=== PATIENT | female | born 1965 | race Caucasian/White ===

== ENCOUNTER 2018-09-08 02:29 | Inpatient (IN) | payer MEDICAID ==
[~2018-09-08] VITALS: Ht 152.4 cm; Wt 52.2 kg
[2018-09-08] VITALS (10 sets, daily range): BP systolic 113–202; BP diastolic 58–88
[2018-09-08] MEDS ORDERED: ONDANSETRON 4 MG/2 ML VIAL IVP ONE (02:40)
[2018-09-08] MEDS ORDERED: NACL 0.9% 2,000 ML IV ONE (02:40)
[2018-09-08] MEDS ORDERED: INSULIN REGULAR, HUMAN 100 UNIT/ML VIAL SUBQ ONE ×2 (02:40→04:00)
--- NOTE | 2018-09-08 02:48 | NUR ---
PT WHEELED INTO BED 11 FROM [facility].
--- NOTE | 2018-09-08 02:49 | NUR ---
PATIENT BIB FAMILY WITH C/O SYNCOPE AND N/V PRIOR TO ER. PT FAMILY STATED THAT PT WOKE UP AND WENT TO THE BATHROOM AND PASSED OUT. PAIN OF 7/10 AT THIS TIME;PT HAS HX OF HTN AND DM. PT BS WAS OVER 600 IN TRIAGE. VSS; PATIENT POSITIONED FOR COMFORT; HOB ELEVATED; BEDRAILS UP X2; BED DOWN. ER MD MADE AWARE OF PT STATUS.
[2018-09-08 02:50] LABS: BASOPHILS # (AUTO) 0.1 K/uL (0.00-0.22); BASOPHILS % (AUTO) 1.2 % (0.0-2.0); EOSINOPHILS # (AUTO) 0.5 K/uL (0-0.4); HEMATOCRIT 50.3 % (36-48); HEMOGLOBIN 16.8 g/dL (12.0-16.0); LYMPHOCYTES # (AUTO) 2.5 K/uL (2.5-16.5); LYMPHOCYTES % (AUTO) 35.4 % (20.5-51.1); MEAN CORPUSCULAR HEMOGLOBIN 29 pg (27-31); MEAN CORPUSCULAR HGB CONC 34 g/dL (33-37); MEAN CORPUSCULAR VOLUME 86.6 fL (80-94); MONOCYTES # (AUTO) 0.4 K/uL (0.8-1.0); MONOCYTES % (AUTO) 5.4 % (1.7-9.3); NEUTROPHILS # (AUTO) 3.6 K/uL (1.8-7.7); PLATELET COUNT (AUTO) 295 K/uL (140-450); RED CELL DISTRIBUTION WIDTH 12.9 % (11.6-13.7)
[2018-09-08] MEDS ORDERED: LABETALOL 100 MG/20 ML VIAL IVP ONE (02:55)
--- NOTE | 2018-09-08 03:00 | NUR ---
FLU SWAB DONE,SENT TO LAB
--- NOTE | 2018-09-08 03:00 | NUR ---
PT LYING IN BED, COMFORT MEASURES OFFERED PT TOLERATED WELL.
[2018-09-08 03:01] LABS: ACETONE, SERUM NEGATIVE (NEGATIVE)
[2018-09-08 03:09] LABS: ALBUMIN 3.9 g/dL (3.4-5.0); ASPARTATE AMINOTRANSFERASE 14 U/L (15-37); CARBON DIOXIDE 27.6 mmol/L (21-32); CHLORIDE 95 mmol/L (98-107); GFR ARICAN-AMERICAN 74 mL/min (>90); POTASSIUM 3.6 mmol/L (3.5-5.1); SODIUM SERUM 133 mmol/L (136-145); TOTAL BILIRUBIN 0.3 mg/dL (0.0-1.0); UREA NITROGEN, BLOOD 15 mg/dL (7-18)
[2018-09-08 03:13] LABS: GLUCOSE 622 mg/dL (74-106)
[2018-09-08] MEDS ORDERED: POTASSIUM CHLORIDE 10 MEQ TABER PO ONE (03:25)
[2018-09-08] MEDS ORDERED: PROCHLORPERAZINE 10 MG/2 ML VIAL IVP ONE (03:55)
[2018-09-08 03:59] LABS: APPEARANCE,URINE HAZY (CLEAR); BILIRUBIN,URINE NEGATIVE (NEGATIVE); BLOOD, URINE TRACE-L (NEGATIVE); COLOR,URINE YELLOW (YELLOW); LEUKOCYTE ESTERASE ,URINE NEGATIVE (NEGATIVE); NITRITE, URINE NEGATIVE (NEGATIVE); UGLUCOSE 3+ (NEGATIVE)
[2018-09-08] MEDS ORDERED: cloNIDine 0.1 MG TAB PO ONE (04:00)
--- NOTE | 2018-09-08 04:00 | NUR ---
PER ER MD TO HOLD OFF ON CLONIDINE PO PILLS. MEDICATION WAS DICONTINUED. ER MD MADE AWARE.
[2018-09-08 04:05] LABS: BARBITURATE, URINE NEG. ng/ml (NEG <=200); BENZODIAZEPINE, URINE NEG. ng/mL (NEG <=200); CANNABINOID, URINE NEG. ng/mL (NEG <=50); COCAINE, URINE NEG. ng/mL (NEG <=300); OPIATE, URINE NEG. ng/mL (NEG <=2000); PHENCYCLIDINE SCREEN,URINE NEG. ng/mL (NEG <=25)
[2018-09-08] MEDS ORDERED: hydrALAZINE 20 MG/ML VIAL IVP ONE (04:05)
[2018-09-08 04:18] LABS: RBC,URINE 0-5 (RARE) /HPF (0-5); WBC,URINE 0-5 (RARE) /HPF (0-5)
--- NOTE | 2018-09-08 04:55 | NUR ---
PT HAD A BM, DIARRHEA. ER MADE AWARE
[2018-09-08] MEDS ORDERED: NACL 0.9% 1,000 ML IV ONE (05:00)
--- NOTE | 2018-09-08 05:05 | NUR ---
ACCU CHECK WAS TAKEN PT TOLERATED WELL. FAMILY AT BEDSIDE. BS WAS 526. ER MD MADE AWARE.
[2018-09-08] MEDS ORDERED: NACL 0.9% 1,000 ML IV SCH (05:12)
[2018-09-08] MEDS ORDERED: MORPHINE SULFATE 2 MG/ML SYR IVP PRN (05:15)
[2018-09-08] MEDS ORDERED: HYDROcodone/APAP 5/325 MG 1 TAB TAB PO PRN (05:15)
[2018-09-08] MEDS ORDERED: DOCUSATE SODIUM 100 MG GELCAP PO PRN (05:15)
[2018-09-08] MEDS ORDERED: INSULIN REGULAR, HUMAN 100 UNIT in NACL 0.9% 100 ML IV SCH ×6 (05:20→06:25)
--- NOTE | 2018-09-08 05:30 | NUR ---
Patient will be admitted to care of DR. MONAHAN. Admited to ICU. Will go to [facility] ICU #5. Belongings list completed. Report to ELIN MERA.
--- NOTE | 2018-09-08 05:30 | NUR ---
Pt report given to ELIN MERA. Transfer of care at this time. PT VSS
[2018-09-08 05:31] LABS: PROTHROMBIN TIME 8.7 secs (10.8-13.4)
--- NOTE | 2018-09-08 05:35 | NUR ---
RECEIVED BEDSIDE REPORT FROM CHLORINE CELL TENDER, ISIAH. PT IS LETHARGIC, GENERALIZED WEAKNESS ABLE TO STAND AT BEDSIDE INTO BED. LUNG SOUNDS CLEAR-DIMINISHED ON BILATERAL UPPER/LOWER LOBES. ON JENNIFER AIR. BOWEL SOUND ACTIVE, ABDOMEN SOFT/ROUND. PT HAD DIARRHEA AND VOMMITTING WHILE IN ED, STATED NO APPETITE FROM FAMILY AT BEDSIDE. NO NICOLE IN PLACE, CONTINENT. LEFT AC 18 GAUGE PIV WITH NS INFUSING AT 125ML/HR. SKIN INTACT. BP= 133/73, RR= 17, SATING 98%, AND HR 79-80. AFEBRILE, TEMP 97.7 SR ON ASSEMBLY LINE SUPERVISOR. STANDARD PRECAUTIONS MAINTAINED, HOB ELEVATED, FALL PRECAUTIONS MAINTAINED.
[2018-09-08 05:43] LABS: CHOL/HDL RATIO 8.7 (1-4.5); MAGNESIUM 1.8 mg/dL (1.8-2.4); PHOSPHORUS 3.9 mg/dL (2.5-4.9); THYROID STIMULATING HORMONE 0.83 uIU/mL (0.34-3.74)
--- NOTE | 2018-09-08 05:50 | NUR ---
RT SALGADO AT BEDSIDE TO COLLECT BLOOD SAMPLE/ABG.
[2018-09-08] MEDS: BLOOD GLUCOSE MONITORING 1 DEV DEV FS SCH ×9 (05:56→20:11)
--- NOTE | 2018-09-08 06:01 | NUR ---
RT LOPEZ AT BEDSIDE TO DRAW ABG.
--- NOTE | 2018-09-08 06:28 | NUR ---
DR. STEPHENS AT BEDSIDE TO SEE PATIENT.
[2018-09-08] MEDS ORDERED: MIC5 PO (06:33)
[2018-09-08] MEDS ORDERED: CAPT25TA10 PO (06:33)
[2018-09-08] MEDS ORDERED: METF850T PO (06:33)
--- NOTE | 2018-09-08 06:55 | NUR ---
PT HAD 1 EPISODE, VOMITTING, AND VOIDING.
[2018-09-08 07:00] LABS: CHOL/HDL RATIO 8.8 (1-4.5)
--- NOTE | 2018-09-08 07:28 | NUR ---
GAVE BEDSIDE REPORT TO MORNING SHIFT RNLORENA, CONTINUITY OF CARE.
--- NOTE | 2018-09-08 07:43 | NUR ---
CALLED DR. ECHOLS ON SHEAR TENDER RESIDENT PHONE, INFORMED OF NO PATIENT CODE STATUS WILL REPORT TO KAT AND UPDATE.
--- NOTE | 2018-09-08 07:52 | NUR ---
PATIENT HAS BEEN SCREENED AND CATEGORIZED MODERATE NUTRITION RISK. PATIENT WILL BE SEEN WITHIN 3-5 DAYS OF ADMISSION. 09/10/18[address]OUB[address]
--- NOTE | 2018-09-08 08:00 | NUR ---
PATIENT SLEEPY, OPENS EYES TO VOICE, OBEYS COMMANDS, ORIENTED, ON ROOM AIR, NO SIGNS OF RESPIRATORY DISTRESS, SINUS RHYTHM ON MONITOR, SOFT ABDOMEN, ON INSULIN DRIP 6 UNITS/HR., VOIDING FREELY, WITH PERIPHERAL LINES GAUGE 29 AT RIGHT HAND-INSULIN DRIP INFUSING, GAUGE 20 AT LEFT ANTECUBITAL WITH NORMAL SALINE 200 CC/HR. BOTH SITES ASYMPTOMATIC, SKIN INTACT, BOTH LEGS WITH SCDs
[2018-09-08] MEDS ORDERED: CAPTOPRIL 25 MG TAB PO SCH (09:00)
--- NOTE | 2018-09-08 09:00 | NUR ---
PHYSICAL THERAPIST AT BEDSIDE.
[2018-09-08] MEDS: ONDANSETRON 4 MG/2 ML VIAL IM/IVP PRN (09:19)
--- NOTE | 2018-09-08 09:19 | NUR ---
PATIENT VOMITED APPROXIMATELY 50 CC GREENISH OUTPUT. PRN ZOFRAN GIVEN. HEAD OF BED UP 45 DEGREES AT THIS TIME. WILL CONTINUE TO MONITOR
--- NOTE | 2018-09-08 09:23 | NUR ---
PATIENT VERY WEAK UNABLE TO SIT STEADY AT THE EDGE OF THE BED. PT AND RN HELPED PATIENT BACK TO BED. DR. STEPHENS MADE AWARE
--- NOTE | 2018-09-08 09:31 | NUR ---
DR. ORONA AT BEDSIDE
[2018-09-08] MEDS ORDERED: MAG SULF 2000 MG/WATER PREMIX 50 ML IV SCH (10:00)
--- NOTE | 2018-09-08 10:09 | NUR ---
DR. STEPHENS MADE AWARE OF PATIENT'S 10 AM BLOOD SUGAR WHICH IS 152. PHYSICIAN TO PUT IN ORDERS
--- NOTE | 2018-09-08 10:40 | NUR ---
ULTRASOUND OF THE ABDOMEN AT BEDSIDE
[2018-09-08] MEDS ORDERED: DEXT 5% /NACL 0.9% 1,000 ML IV SCH (11:05)
[2018-09-08] MEDS ORDERED: DEXTROSE 50% 50 ML SYR IVP PRN (11:05)
[2018-09-08 11:10] LABS: ANION GAP 10.2 (8-16); CARBON DIOXIDE 28.3 mmol/L (21-32); CREATININE 0.8 mg/dL (0.6-1.3); POTASSIUM 3.5 mmol/L (3.5-5.1)
[2018-09-08 11:15] LABS: MAGNESIUM 1.8 mg/dL (1.8-2.4); PHOSPHORUS 2.2 mg/dL (2.5-4.9)
--- NOTE | 2018-09-08 11:30 | NUR ---
PATIENT OFF INSULIN DRIP AT THIS TIME. PER DR. STEPHENS WILL START [facility] BLOOD SUGAR CHECK AND SLIDING SCALE. CURRENT BLOOD SUGAR 126
[2018-09-08] MEDS: METOCLOPRAMIDE 10 MG/2 ML INJ VIAL IVP PRN ×2 (12:01→18:13)
[2018-09-08] MEDS ORDERED: MECLIZINE 25 MG TAB PO PRN (13:30)
--- NOTE | 2018-09-08 16:24 | NUR ---
INFORMED DR. ECHOLS (WHO IS COVERING FOR DR. STEPHENS) THAT PATIENT IS NO LONGER VOMITING AND SHE IS NOW EATING AND MAY SWITCH IV FLUID TO NORMAL SALINE INSTEAD OF D5NS, INFORMED DR. ECHOLS TO CANCEL PREVIOUS ORDER FOR NPO, INFORMED PATIENT HAS IMPLANTED METAL DENTURE AND MRI BRAIN WAS ORDERED FOR THIS PATIENT
[2018-09-08 16:28] LABS: ANION GAP 13.6 (8-16); CARBON DIOXIDE 24.7 mmol/L (21-32); CREATININE 0.7 mg/dL (0.6-1.3); MAGNESIUM 1.9 mg/dL (1.8-2.4); PHOSPHORUS 3.2 mg/dL (2.5-4.9); POTASSIUM 3.3 mmol/L (3.5-5.1)
[2018-09-08] MEDS: INSULIN LISPRO SLIDING SCALE 100 UNITS/ML VIAL SUBQ PRN ×2 (16:32→20:15)
[2018-09-08] MEDS: NACL 0.9% 1,000 ML IV SCH (16:33)
[2018-09-08] MEDS: SODIUM PHOS / POTASSIUM PHOS 1 PKT PDR PO SCH (16:33)
--- NOTE | 2018-09-08 17:30 | NUR ---
PM CARE RENDERED. DINNER TRAY SERVED THEREAFTER. HEAD OF BED KEPT UP
[2018-09-08] MEDS: hydrALAZINE 20 MG/ML VIAL IVP PRN (18:13)
--- NOTE | 2018-09-08 18:30 | NUR ---
MEDICATED PATIENT PRN METOCLOPRAMIDE AFTER SHE VOMITED AGAIN ABOUT 50 ML GREENISH OUTPUT AFTER DINNER. HEAD OF BED KEPT UP. PATIENT ORIENTEDX4 NOT IN ANY DISTRESS
--- NOTE | 2018-09-08 19:30 | NUR ---
RECEIVED REPORT FROM MORNING RN FOR CONTINUITY OF CARE. VS STABLE AT THIS TIME. PT DOES NOT APPEAR TO BE EXPERIENCING ANY DISCOMFORT. PT OPENS EYES TO NAME. DENIES PAIN AT THIS TIME. PT ABLE TO MAKE NEEDS KNOWN AND TO FOLLOW COMMANDS. LUNG SOUNDS CLEAR. PT IN ROOM AIR. NO SOB NOTED. DENIES ANY DIFFICULTY BREATHING. S1+S2 HEARD. PULSES ARE PALPABLE IN ALL EXTREMITIES. SR ON MONITOR. ABDOMEN ROUND, SOFT AND NONDISTENDED. DENIES ANY NAUSEA AT THIS TIME. BS ACTIVE IN ALL QUADRANTS. PT DENIES THE NEED TO USE THE BEDPAN RIGHT NOW. RECEIVED PT WITH PERIPHERAL IV ACCESS ON LEFT HAND 20G AND LEFT AC 18G. LINES ARE PATENT, INTACT, AND ASYMPTOMATIC. PT HAS NS AT 100ML/HR RUNNING. SCD IN PLACE. HOB AT 30 DEGREES. ALL SAFETY PRECAUTIONS ARE IN PLACE. WILL CONTINUE TO MONITOR PT.
[2018-09-08 20:08] LABS: CARBON DIOXIDE 26.5 mmol/L (21-32); CREATININE 0.9 mg/dL (0.6-1.3); POTASSIUM 3.5 mmol/L (3.5-5.1)
[2018-09-08] MEDS: SIMVASTATIN 40 MG TAB PO SCH (20:11)
[2018-09-08 20:12] LABS: MAGNESIUM 1.8 mg/dL (1.8-2.4)
[2018-09-08] MEDS ORDERED: ATORVASTATIN 20 MG TAB PO SCH (21:00)
--- NOTE | 2018-09-08 21:40 | NUR ---
PT'S FAMILY AT BEDSIDE AT THIS TIME. PT INTERACTING WITH FAMILY.
--- NOTE | 2018-09-08 23:44 | NUR ---
NO CHANGE IN PT'S CONDITION AT THIS TIME. EYES ARE CLOSED. RESPIRATIONS EVEN AND UNLABORED. SR ON MONITOR WITH HR BETWEEN 70S TO 80S. PT REMAINS IN ROOM AIR. NO S/S OF HYPO OR HYPERGLYCEMIA OBSERVED.
[2018-09-09] VITALS (9 sets, daily range): BP systolic 108–152; BP diastolic 50–82
--- NOTE | 2018-09-09 00:15 | NUR ---
PT EYES ARE CLOSED. CHANGED THE LEADS ON HER CHEST. NOTED WITH SOME BLOOD ON THE SHEETS. IV ON LEFT AC WAS PULLED OUT. CATHETER INTACT. BLEEDING FROM IV SITE STOPPED. PT'S GOWN AND LINENS WERE CHANGED.
[2018-09-09 00:23] LABS: CARBON DIOXIDE 26.9 mmol/L (21-32); CREATININE 0.7 mg/dL (0.6-1.3)
[2018-09-09 00:26] LABS: MAGNESIUM 1.8 mg/dL (1.8-2.4); PHOSPHORUS 3.2 mg/dL (2.5-4.9)
[2018-09-09 00:51] LABS: POTASSIUM 2.9 mmol/L (3.5-5.1)
--- NOTE | 2018-09-09 00:51 | NUR ---
REPORTED CRITICAL LAB VALUE TO DR. BOONE; RECEIVED NEW ORDERS. CLARIFIED THE BMP WELL. NO MORE BMP UNTIL THE MORNING LABS. CALLED LAB AND NOTIFIED PRACHI.
[2018-09-09] MEDS: hydrALAZINE 20 MG/ML VIAL IVP PRN ×2 (00:59→13:49)
[2018-09-09] MEDS ORDERED: POTASSIUM CHLORIDE 10 MEQ TABER PO SCH (01:00)
--- NOTE | 2018-09-09 01:05 | NUR ---
PT WAS ABLE TO SWALLOW MEDICATIONS WITH NO DIFFICULTY. RESPIRATIONS ARE EVEN AND UNLABORED. PT STATES THAT SHE DOES NOT NEED ANYTHING AT THIS TIME. PT REMAINS IN ROOM AIR.
[2018-09-09] MEDS: NACL 0.9% 1,000 ML IV SCH ×3 (02:20→21:09)
--- NOTE | 2018-09-09 04:18 | NUR ---
VS STABLE. NO CHANGE IN CONDITION. PT ABLE TO REPOSITION SELF. LINENS AND GOWN REMAINS CLEAN FROM BEING CHANGED EARLIER IN THE SHIFT. NO BM AT THIS TIME. IV LINE STILL PATENT, INTACT, AND ASYMPTOMATIC. ALL SAFETY PRECAUTIONS ARE IN PLACE. WILL CONTINUE TO MONITOR PT.
[2018-09-09 06:12] LABS: ANION GAP 12.9 (8-16); CARBON DIOXIDE 24.2 mmol/L (21-32); CREATININE 0.7 mg/dL (0.6-1.3); POTASSIUM 4.1 mmol/L (3.5-5.1)
--- NOTE | 2018-09-09 06:15 | NUR ---
VS REMAINS STABLE. EYES ARE CLOSED. PT DENIES ANY PAIN AT THIS TIME. RESPIRATIONS ARE EVEN AND UNLABORED. STILL IN ROOM AIR WITH OXYGEN SATURATION AT 98%. ALL SAFETY PRECAUTIONS REMAINS IN PLACE. WILL CONDITION TO MONITOR PT.
[2018-09-09 06:16] LABS: MAGNESIUM 1.6 mg/dL (1.8-2.4); PHOSPHORUS 3.1 mg/dL (2.5-4.9)
[2018-09-09 06:20] LABS: BASOPHILS % (AUTO) 0.2 % (0.0-2.0); EOSINOPHILS % (AUTO) 0.2 % (0.0-4.0); HEMATOCRIT 41.2 % (36-48); HEMOGLOBIN 13.8 g/dL (12.0-16.0); LYMPHOCYTES % (AUTO) 19.3 % (20.5-51.1); MEAN CORPUSCULAR HEMOGLOBIN 29 pg (27-31); MEAN CORPUSCULAR HGB CONC 34 g/dL (33-37); MEAN CORPUSCULAR VOLUME 87.1 fL (80-94); MONOCYTES # (AUTO) 0.4 K/uL (0.8-1.0); MONOCYTES % (AUTO) 3.7 % (1.7-9.3); NEUTROPHILS % (AUTO) 76.6 % (42.2-75.2); PLATELET COUNT (AUTO) 264 K/uL (140-450); RED BLOOD CELL COUNT(AUTO) 4.73 MIL/uL (4.20-5.40); RED CELL DISTRIBUTION WIDTH 13.3 % (11.6-13.7); WHITE BLOOD COUNT (AUTO) 10.4 K/uL (4.8-10.8)
[2018-09-09] MEDS: BLOOD GLUCOSE MONITORING 1 DEV DEV FS SCH ×4 (06:25→21:05)
[2018-09-09] MEDS: SODIUM PHOS / POTASSIUM PHOS 1 PKT PDR PO SCH ×3 (06:25→17:28)
[2018-09-09] MEDS ORDERED: PROMETHAZINE 25 MG/ML VIAL IVP PRN (06:45)
--- NOTE | 2018-09-09 07:11 | NUR ---
REPORT GIVEN TO MORNING RNMADIE, FOR CONTINUITY OF CARE. VS STABLE AT THIS TIME. ENDORSED THE INSULIN COVERAGE NEEDED D/T PT'S TRAY NOT AT BEDSIDE YET.
--- NOTE | 2018-09-09 07:15 | NUR ---
RECEIVED REPORT FROM SCREEN PRINTER HELPER RN AT BEDSIDE, PT AAOX4, TAJIK SPEAKING, ABLE TO FOLLOW COMMANDS AND MAKE NEEDS KNOWN, VSS, DENIES PAIN, NO S/S OF DISTRESS, CLEAR LUNG SOUND PHYLICIA. ON RA, O2 SAT 97%, DENIES CHEST PAIN, ST ON SUBASSEMBLY ASSEMBLER, +2 PULSE PRESENT, SOFT ABDOMEN WITH ACTIVE BOWEL SOUNDS, CONTINENT WITH B&B'S, ABLE TO MOVE ALL EXTREMITIES, SLIGHT WEAKNESS NOTED, SKIN IS INTACT, WARM AND DRY TO TOUCH, IV SITE TO LEFT HAND, 20GA, RUNNING NS AT 100ML/HR, HOB ELEVATED 30 DEGREES, SAFETY MEASURES IN PLACE, CALL LIGHT WITHIN REACH, WILL CONTINUE TO MONITOR.
[2018-09-09] MEDS: INSULIN LISPRO SLIDING SCALE 100 UNITS/ML VIAL SUBQ PRN ×4 (07:50→21:05)
[2018-09-09] MEDS: ONDANSETRON 4 MG/2 ML VIAL IM/IVP PRN ×2 (08:00→21:00)
[2018-09-09] MEDS: LISINOPRIL 10 MG TAB PO SCH (08:06)
[2018-09-09] MEDS: METOCLOPRAMIDE 10 MG TAB PO SCH ×3 (08:06→17:28)
[2018-09-09 08:19] LABS: T4 (THYROXINE) 9.1 ug/dL (4.5-12.0)
--- NOTE | 2018-09-09 08:21 | NUR ---
DR ZAVALA INFORMED OF PATIENT'S MAG LEVEL 1.6. WILL FOLLOW UP WITH ORDERS.
--- NOTE | 2018-09-09 08:30 | NUR ---
PT ATE 50%OF BREAKFAST, SCHEDULED MEDICATION GIVEN, PT C/O NAUSEA, ZOFRAN GIVEN.
[2018-09-09] MEDS ORDERED: MAGNESIUM OXIDE 400 MG TAB PO SCH (09:00)
[2018-09-09] MEDS ORDERED: CAPTOPRIL 25 MG TAB PO SCH (09:00)
--- NOTE | 2018-09-09 09:14 | NUR ---
CM NOTE RECEIVED ORDER FOR MRI OF THE BRAIN W/O CONTRAST R/O CVA. PER COCO OF [facility] MRI FRONT OFFICE PH# [phone], SHE WILL HAVE TO CHECK WITH HER DIRECTOR OF ENTERTAINMENT FIRST IF THE MRI IS APPROVED BY CADASTRAL SURVEYOR AND SHE WILL CHECK IF THEY HAVE AN GROOVER AND TURNER AVAILABLE TODAY. I FAXED FACESHEET, ORDER FOR MRI, H&P, MRI QUESTIONNAIRE ANSWERED AND SIGNED BY THE PATIENT,CT OF THE HEAD REPORT, LAB RESULT TO [facility] MRI DEPT ATTN: COCO. I INFORMED COCO THAT PER FREELANCE PATTERNMAKER CHONG, FREELANCE PATTERNMAKER LORENA'S NOTE AND PER MRI QUESTIONNAIRE ANSWERED AND SIGNED BY PATIENT, THE PATIENT HAS IMPLANTED METAL DENTURE. I REQUESTED COCO TO CHECK WITH THEIR GROOVER AND TURNER IF MRI OF THE BRAIN CAN BE DONE TO THIS PATIENT. PER COCO SHE WILL CALL BACK IF MRI OF THE BRAIN CAN BE DONE AND IF THEY WOULD HAVE AN GROOVER AND TURNER AVAILABLE TODAY.
[2018-09-09] MEDS ORDERED: glyBURIDE 5 MG TAB PO SCH (11:15)
[2018-09-09] MEDS ORDERED: ASPIRIN 81 MG TAB.CHEW PO SCH (11:30)
--- NOTE | 2018-09-09 11:31 | NUR ---
CM NOTE PER [facility] PRODUCTION ASSOCIATE SUZY MARTINEZ PH# [phone], MRI OF THE BRAIN CAN BE DONE IN THIS PATIENT WITH METAL DENTAL IMPLANT BUT THAT THEY DO NOT HAVE AN AVAILABLE PRODUCTION ASSOCIATE TO DO IT TODAY AND HE HAS OTHER SCHEDULED APPOINTMENTS FOR TODAY. PER [facility] PRODUCTION ASSOCIATE SUZY MARTINEZ, THE EARLIEST AVAILABLE SCHEDULE TO DO THE MRI WOULD BE ON SEPTEMBER 12, 2018 AND THE PATIENT HAS TO BE AT [facility] BY 8:00 AM. 1000 PER [facility] PRODUCTION ASSOCIATE MELODY KNIGHT PH# [phone], MRI OF THE BRAIN CAN BE DONE IN THIS PATIENT WITH METAL DENTAL IMPLANT. SHE SAID THAT SHE CAN DO THE MRI IF THE PATIENT WILL BE AT [facility] BY 12 NOON TODAY. FAXED FACESHEET, ORDER FOR MRI, H&P, MRI QUESTIONNAIRE ANSWERED AND SIGNED BY THE PATIENT, CT OF HEAD REPORT, LAB RESULT TO [facility], ATTN: MELODY. 1020 RECEIVED A CALL FROM [facility] PRODUCTION ASSOCIATE MELODY KNIGHT STATING THAT SHE WOULD BE UNABLE TO DO THE MRI TODAY BECAUSE SHE HAS CHECKED HER SCHEDULE AND SHE IS DOING A TRIPLE STUDY ON ANOTHER PATIENT TODAY WHICH WILL TAKE TIME TO DO. CM DIRECTOR JONES YUEN.
--- NOTE | 2018-09-09 12:00 | NUR ---
PT IS RESTING IN BED, NO S/S OF DISTRESS, DENIES PAIN, VSS, ABLE TO EAT 50% LUNCH AND ONLY CAN TOLERATED SOFT FOOD AT THIS TIME, MD AWARE.
--- NOTE | 2018-09-09 12:33 | NUR ---
[address] FROM [facility]. HE STATED THAT THEY THOUGHT THEY HAD A PATIENT NO SHOW SO WERE TRYING TO ACCOMMODATE PT FOR MRI BUT THEIR PATIENT DID SHOW AND THEY NOW ALSO HAVE MRI'S SCHEDULED FOR THEIR INHOUSE PATIENTS SO WILL NOT BE ABLE TO ACCOMMODATE THE PATIENT TODAY.
--- NOTE | 2018-09-09 12:39 | NUR ---
CM NOTE DR. ZAVALA AWARE THAT THE MRI CANNOT BE DONE TODAY AT [facility] OR [facility]. I ASKED DR. ZAVALA IF SHE STILL WANTS THE MRI TO BE SCHEDULED FOR WEDNESDAY AT [facility]. PER DR. ZAVALA, SHE WILL ASK DR. MONAHAN AND WILL INFORM US OF ANY FURTHER INSTRUCTION.
--- NOTE | 2018-09-09 14:10 | NUR ---
TRANSFERRED PT TO TELEMETRY ROOM 111A, ALL BELONGINGS GOES WITH PT, REPORT GIVE TO EDE WHATLEY, NO INCIDENT AT THIS TIME.
--- NOTE | 2018-09-09 14:29 | NUR ---
CM NOTE ORDER FOR MRI OF THE BRAIN TO R/O CVA ON SEPTEMBER 12, 2018. PER DOUG OF [facility] PH# [phone], THEY ARE ABLE TO DO THE MRI ON SEPTEMBER 12, 2018 AND THE PATIENT HAS TO BE THERE BY 8:00 AM AND HAS TO PASS BY THEIR OUTPATIENT DEPT FIRST. SPOKE WITH KATY OF [facility] PH# [phone] TO SET UP PATIENT TRANSPORT. PER KATY, THE PATIENT WILL BE PICKED UP AT 0715 TIME ON SEPTEMBER 12, 2018 BY [facility] TO GO TO [facility] FOR MRI, WAIT IN RETURN. I FAXED THE [facility] TRANSPORTATION VOUCHER TO [facility]. I WAS INFORMED BY ICU NURSE MADIE THAT THE THEY ARE TRANSFERRING THE PATIENT TO TELEMETRY RM 111 A TODAY. I SPOKE WITH KATY OF [facility] TO GIVE HER AN UPDATE ABOUT THE ROOM CHANGE FOR SALES UTILITY REPRESENTATIVE. DR. ZAVALA AND MADIE RN AWARE.
--- NOTE | 2018-09-09 14:30 | NUR ---
RECEIVED REPORT FROM ICU NURSE MADIE. PATIENT AAOX4. PATIENT ON ROOM AIR, NO DISTRESS NOTED. ABLE TO TRANSFER TO BED W 1 PERSON ASSIST D/T GEN WEAKNESS. PATIENT ON TELE MONITOR AND STANDARD PRECAUTIONS IN PLACE. SKIN INTACT. IV ON L HAND 20 G INFUSING NS AT 100. IV ASYMPTOMATIC, INTACT AND PATENT. SCDS IN PLACE. BED IN LOW POSITION CALL LIGHT WITHIN REACH. WILL CONTINUE TO MONITOR.
--- NOTE | 2018-09-09 16:00 | NUR ---
FAMILY AT BEDSIDE. ON ROOM AIR, NO DISTRESS NOTED. SLEEPING, WILL CONTINUE TO MONITOR.
[2018-09-09] MEDS: glyBURIDE 5 MG TAB PO SCH (17:27)
--- NOTE | 2018-09-09 18:12 | NUR ---
BLOOD SUGAR 294. PATIENT SHOWING NO S/SX OF HYPERGLYCEMIA. ADMINISTERED 6 UNITS HUMALOG. WILL CONTINUE TO MONITOR PATIENT.
--- NOTE | 2018-09-09 19:10 | NUR ---
GAVE REPORT TO EDE CLAY. PATIENT ENDORSED IN STABLE CONDITION, SLEEPING, ON ROOM AIR, NO DISTRESS NOTED.
--- NOTE | 2018-09-09 19:30 | NUR ---
RECEIVED BEDSIDE REPORT FROM EDE JOLLY, PATIENT IN BED, EASILY AWAKEN, ON RA, NO SIGNS OF DISTRESS, AAOX4, IV IN LEFT HAND 20 G INFUSING NS AT 100 ML/HR, DRESSING INTACT. NOTED RIGHT SIDED WEAKNESS, BED IN LOWEST POSITION, BED ALARM ON. DAY SHIFT NURSE STATED LEFT EYE DRIFTS, NO OBVIOUS DRIFT SEEN AT THIS TIME. V/S TAKEN ALL WITHIN BASELINE, BG 278 WILL GIVE INSULIN. PATIENT C/O FEELING NAUSEOUS WILL GIVE ZOFRAN.
[2018-09-09] MEDS: SIMVASTATIN 40 MG TAB PO SCH (21:00)
--- NOTE | 2018-09-09 21:06 | NUR ---
DUE MEDICATIONS GIVEN BLOOD GLUCOSE 278 GAVE 6 UNITS, PATIENT C/O FEELING NAUSEOUS GAVE ZOFRAN IVP.
--- NOTE | 2018-09-09 22:45 | NUR ---
PATIENT AMBULATED TO RESTROOM, UNSTEADY GAIT, NEEDS ONE PERSON ASSIST.
[2018-09-10] VITALS: BP 140/77
--- NOTE | 2018-09-10 00:10 | NUR ---
V/S TAKEN, PATIENT SLEEPING, NO SIGNS OF DISTRESS.
--- NOTE | 2018-09-10 01:40 | NUR ---
PATIENT SLEEPING IN BED NO SIGNS OF DISTRESS.
--- NOTE | 2018-09-10 03:58 | NUR ---
V/S TAKEN NOTED BP 133/90 HR 90. DENIES PAIN. IV INFUSING NS AT 100 ML/HR. BED ALARM ON, CALL LIGHT WITHIN REACH.
[2018-09-10 04:00] VITALS: BP 133/90
--- NOTE | 2018-09-10 05:42 | NUR ---
BLOOD GLUCOSE 146 NO COVERAGE NEEDED
[2018-09-10] MEDS ORDERED: PNEUMOCOCCAL VACCINE 23 MCG/0.5 ML VIAL IMVAC SCH (06:10)
[2018-09-10] MEDS ORDERED: INFLUENZA VIRUS VACCINE QUAD 0.5 ML SYR IMVAC PRN (06:10)
[2018-09-10] MEDS: BLOOD GLUCOSE MONITORING 1 DEV DEV FS SCH ×4 (06:27→20:39)
[2018-09-10] MEDS: METOCLOPRAMIDE 10 MG TAB PO SCH ×3 (06:29→17:06)
[2018-09-10] MEDS: SODIUM PHOS / POTASSIUM PHOS 1 PKT PDR PO SCH (06:29)
--- NOTE | 2018-09-10 06:31 | NUR ---
DUE MEDICATIONS GIVEN
--- NOTE | 2018-09-10 07:11 | NUR ---
ENDORSED PATIENT TO DAY SHIFT NURSE RUKHSANA, PATIENT SLEEPING IN BED STABLE.
--- NOTE | 2018-09-10 07:15 | NUR ---
RECEIVED BEDSIDE REPORT FROM BLISTER PACKAGING MACHINE OPERATOR RN FOR CONTINUITY OF CARE. PT IN STABLE CONDITION. AOX4. STATES THAT SHE IS NAUSEOUS, WILL CHECK EMAR AND ADMIN ANTIEMETIC ORDERED. RESPIRATIONS EVEN AND UNLABORED. HEART RHYTHM REGULAR. ACTIVE BS IN ALL QUADRANTS. ABDOMEN SOFT AND NON-DISTENDED. RT SIDED WEAKNESS NOTED. SKIN INTACT. IV SITE PATENT AND ASYMPTOMATIC, INFUSING IVF PER MD ORDERS. ALL SAFETY PRECAUTIONS IN PLACE, WILL CONTINUE TO MONITOR. Addendum: 09/10/18 at 1843 by Cindi Carrera Meng, RN FACIAL FEATURES SYMMETRICAL, NO DROOP. NO SLURRED SPEECH.
[2018-09-10 07:44] LABS: BASOPHILS % (AUTO) 0.5 % (0.0-2.0); EOSINOPHILS # (AUTO) 0.1 K/uL (0-0.4); EOSINOPHILS % (AUTO) 1.6 % (0.0-4.0); HEMOGLOBIN 13.7 g/dL (12.0-16.0); LYMPHOCYTES # (AUTO) 3.2 K/uL (2.5-16.5); LYMPHOCYTES % (AUTO) 37.5 % (20.5-51.1); MEAN CORPUSCULAR HEMOGLOBIN 29 pg (27-31); MEAN CORPUSCULAR HGB CONC 33 g/dL (33-37); MEAN CORPUSCULAR VOLUME 86.9 fL (80-94); MONOCYTES # (AUTO) 0.5 K/uL (0.8-1.0); MONOCYTES % (AUTO) 5.7 % (1.7-9.3); NEUTROPHILS # (AUTO) 4.7 K/uL (1.8-7.7); NEUTROPHILS % (AUTO) 54.7 % (42.2-75.2); PLATELET COUNT (AUTO) 247 K/uL (140-450); RED BLOOD CELL COUNT(AUTO) 4.72 MIL/uL (4.20-5.40); RED CELL DISTRIBUTION WIDTH 12.7 % (11.6-13.7); WHITE BLOOD COUNT (AUTO) 8.5 K/uL (4.8-10.8)
[2018-09-10 08:00] VITALS: BP 154/68
[2018-09-10] MEDS: ASPIRIN 81 MG TAB.CHEW PO SCH (08:04)
[2018-09-10] MEDS: LISINOPRIL 10 MG TAB PO SCH (08:04)
[2018-09-10] MEDS: glyBURIDE 5 MG TAB PO SCH ×2 (08:04→17:06)
[2018-09-10] MEDS: ONDANSETRON 4 MG/2 ML VIAL IM/IVP PRN ×2 (08:04→20:29)
--- NOTE | 2018-09-10 08:04 | NUR ---
ZOFRAN IVP ADMINISTERED FOR PT C/O NAUSEA. NO VOMITING NOTED.
[2018-09-10 08:08] LABS: ANION GAP 13.5 (8-16); CREATININE 0.7 mg/dL (0.6-1.3); POTASSIUM 3.5 mmol/L (3.5-5.1)
--- NOTE | 2018-09-10 09:00 | NUR ---
PT SLEEPING IN BED, AFTER ZOFRAN ADMINISTRATION. NO S/S N/V.
[2018-09-10] MEDS: NACL 0.9% 1,000 ML IV SCH ×2 (09:19→09:27)
[2018-09-10] MEDS: metFORMIN 850 MG TAB PO SCH ×2 (11:16→17:06)
[2018-09-10] MEDS: INSULIN LISPRO SLIDING SCALE 100 UNITS/ML VIAL SUBQ PRN ×3 (11:27→20:34)
--- NOTE | 2018-09-10 11:38 | NUR ---
ADMINISTERED 8 U HUMALOG FOR POC BLOOD GLUC OF 344
[2018-09-10 12:00] VITALS: BP 143/70
[2018-09-10] MEDS ORDERED: MAG SULF 2000 MG/WATER PREMIX 50 ML IV SCH (14:30)
--- NOTE | 2018-09-10 14:36 | NUR ---
* ST NOTE * Pt seen at bedside. Pt alert, cooperative and engaged throughout session, reporting no c/o pain at this time. Bedside dysphagia and oral mechanism exams completed. See evaluation report for further details. Pt tolerating 8/8 alternating PO trials of regular solid saltine crackers as well as 7/7 alternating PO trials of thin liquid apple juice via a straw, all w/o s/s of aspiration or choking. Pt reporting difficulty swallowing meats 2/2 to meat seeming dry. Pt and caregiver/nsg Cindi education completed re: aspiration precautions and safe swallow compensatory strategies pt and caregivers/family/nsg could utilize to aid pt w/swallow function, w/pt and caregiver/nsg Cindi verbalizing understanding and agreement w/clinician's recommendations. Pt also informed clinician will request FNS/Dietary services to add extra sauce/gravy to meats to aid pt w/swallowing as well, w/pt agreeable. It is thus recommended pt's PO diet consistency be modified to Mechanical soft-CHOPPED textures w/extra sauce/gravy on meats w/thin liquids for all meals, w/strict aspiration precautions in place during pt's PO intake. No further ST follow up recommended at this time. Pt and caregiver/Nsg Cindi education completed re: results of evaluation; benefits of abiding by aspiration precautions and recommended PO diet consistency; and prognosis for improvement; with pt and caregiver/Nsg Cindi verbalizing understanding and agreement w/clinician's recommendations. Recommend: - PO DIET CONSISTENCY OF MECHANICAL SOFT-CHOPPED TEXTURES, W/EXTRA SAUCE/GRAVY ON MEATS, W/THIN LIQUIDS For all meals - DIETARY/FNS: PLEASE ADD EXTRA SAUCE/GRAVY ON MEATS 2/2 to pt reporting c/o difficulty swallowing dry meat - WHOLE PILL PO MEDICATION ADMINISTRATION OR CRUSHED IN CHOPPED TEXTURES - MAINTAIN STRICT ASPIRATION PRECAUTIONS DURING PO INTAKE 2/2 TO RIGHT SIDED WEAKNESS - Pt requires assistance/cueing/reminders prior to setup of tray and during feeding - CAREGIVERS/NSG/FAMILY TO REMIND & CUE PT PRIOR AND DURING TO PO INTAKE TO SIT UP AT 80-90 DEGREE ANGLE DURING PO INTAKE; EAT SLOWLY; ALTERNATE BTWN SOLIDS & LIQUIDS; AND USE SMALL BITES/SIPS No further ST follow up recommended at this time. NOMS Level 3 Time In/Out 13:00 - 13:45
[2018-09-10 16:00] VITALS: BP 168/86
--- NOTE | 2018-09-10 16:26 | NUR ---
NOTIFIED DR. STEPHENS THAT BP WAS 175/88 AND RETAKEN WITH 168/[address] STEPHENS, SHE WILL PLACE ORDERS FOR LISINOPRIL BID - PULL OUT LISINOPRIL ORDER EARLY(WHENEVER AVAILABLE) AND ADMINISTER TO PT.
--- NOTE | 2018-09-10 16:57 | NUR ---
ASKED PHARMACY TO VERIFY LISINOPRIL. PHARMACIST WILL VERIFY THE ORDER.
[2018-09-10] MEDS ORDERED: LISINOPRIL 10 MG TAB PO SCH (17:00)
--- NOTE | 2018-09-10 19:28 | NUR ---
ENDORSED POC TO MOLDING ROOM SUPERVISOR RN. PT IN STABLE CONDITION.
--- NOTE | 2018-09-10 19:30 | NUR ---
RECEIVED BEDSIDE REPORT FORM EDE MILIAN, PATIENT IN BED, IV IN LEFT AC 22 G INFUSING NS AT 40 ML/HR. PATIENT C/O HEADACHE 09/18, ASKED FOR TYLENOL. FAMILY AT BEDSIDE QUESTIONS ANSWERED. BED IN LOWEST POSITION, CALL LIGHT WITHIN REACH, WILL CONTINUE TO MONITOR.
[2018-09-10 20:00] VITALS: BP 161/78
[2018-09-10] MEDS: SIMVASTATIN 40 MG TAB PO SCH (20:28)
[2018-09-10] MEDS: ACETAMINOPHEN 325 MG TAB PO PRN (20:28)
[2018-09-10] MEDS: hydrALAZINE 20 MG/ML VIAL IVP PRN (20:30)
--- NOTE | 2018-09-10 20:40 | NUR ---
BP 161/78 HR 90 GAVE HYDRALAZINE IVP, WILL REASSESS. BG 301 GAVE 8 UNITS HUMALOG. PATIENT C/O HEADACHE 3/10 GAVE TYLENOL, TOLERATED WELL. PATIENT C/O FEELING NAUSEOUS AT TIMES BUT NOT VOMITING GAVE ZOFRAN.
--- NOTE | 2018-09-10 21:30 | NUR ---
BP 130/70 HR 90 AFTER HYDRALAZINE WILL CONTINUE TO MONITOR.
[2018-09-11] VITALS: BP 111/60
--- NOTE | 2018-09-11 | NUR ---
B/P 111/60 HR 91 WILL CONTINUE TO MONITOR.
--- NOTE | 2018-09-11 02:00 | NUR ---
PATIENT SLEEPING IN BED NO SIGNS OF DISTRESS, WILL CONTINUE TO MONITOR.
[2018-09-11 04:00] VITALS: BP 144/67
[2018-09-11] MEDS: INSULIN LISPRO SLIDING SCALE 100 UNITS/ML VIAL SUBQ PRN ×4 (06:29→21:06)
[2018-09-11] MEDS: BLOOD GLUCOSE MONITORING 1 DEV DEV FS SCH ×4 (06:30→21:08)
[2018-09-11] MEDS: METOCLOPRAMIDE 10 MG TAB PO SCH ×3 (06:38→16:55)
--- NOTE | 2018-09-11 06:41 | NUR ---
BLOOD GLUCOSE 197 GAVE 2 U INSULIN.
[2018-09-11 06:48] LABS: BASOPHILS # (AUTO) 0.1 K/uL (0.00-0.22); BASOPHILS % (AUTO) 0.6 % (0.0-2.0); EOSINOPHILS # (AUTO) 0.2 K/uL (0-0.4); HEMOGLOBIN 12.7 g/dL (12.0-16.0); LYMPHOCYTES # (AUTO) 2.6 K/uL (2.5-16.5); LYMPHOCYTES % (AUTO) 32.9 % (20.5-51.1); MEAN CORPUSCULAR HEMOGLOBIN 29 pg (27-31); MEAN CORPUSCULAR HGB CONC 33 g/dL (33-37); MEAN CORPUSCULAR VOLUME 86.9 fL (80-94); MONOCYTES # (AUTO) 0.7 K/uL (0.8-1.0); MONOCYTES % (AUTO) 8.3 % (1.7-9.3); NEUTROPHILS # (AUTO) 4.5 K/uL (1.8-7.7); NEUTROPHILS % (AUTO) 56.2 % (42.2-75.2); PLATELET COUNT (AUTO) 240 K/uL (140-450); RED BLOOD CELL COUNT(AUTO) 4.37 MIL/uL (4.20-5.40); RED CELL DISTRIBUTION WIDTH 12.9 % (11.6-13.7)
[2018-09-11 07:05] LABS: ANION GAP 10.8 (8-16); CARBON DIOXIDE 27.6 mmol/L (21-32); CREATININE 0.8 mg/dL (0.6-1.3); POTASSIUM 3.4 mmol/L (3.5-5.1)
--- NOTE | 2018-09-11 07:19 | NUR ---
ENDORSED PATIENT TO DAY SHIFT NURSE PATIENT STABLE.
--- NOTE | 2018-09-11 07:20 | NUR ---
RECEIVED BEDSIDE REPORT FROM VALLEZ FILTER OPERATOR RN FOR CONTINUITY OF CARE. PT IN STABLE CONDITION, RESTING COMFORTABLY IN BED WITH FAMILY MEMBER AT BEDSIDE. AOX4. NO C/O PAIN OR DISCOMFORT. RESPIRATIONS EVEN AND UNLABORED. HEART RHYTHM REGULAR. ACTIVE BS IN ALL QUADRANTS. ABDOMEN SOFT AND NON-DISTENDED. RT SIDED WEAKNESS NOTED. SKIN INTACT. IV SITE PATENT AND ASYMPTOMATIC, INFUSING IVF PER MD ORDERS. ALL SAFETY PRECAUTIONS IN PLACE, WILL CONTINUE TO MONITOR.
[2018-09-11 07:22] LABS: MAGNESIUM 1.9 mg/dL (1.8-2.4); PHOSPHORUS 4.3 mg/dL (2.5-4.9)
[2018-09-11 08:00] VITALS: BP 158/74
[2018-09-11] MEDS ORDERED: POTASSIUM CHLORIDE 10 MEQ TABER PO ONE (08:00)
[2018-09-11] MEDS: glyBURIDE 5 MG TAB PO SCH ×2 (08:02→16:55)
[2018-09-11] MEDS: ASPIRIN 81 MG TAB.CHEW PO SCH (08:03)
[2018-09-11] MEDS: LISINOPRIL 10 MG TAB PO SCH ×2 (08:03→20:59)
[2018-09-11] MEDS: metFORMIN 850 MG TAB PO SCH ×3 (08:04→16:55)
--- NOTE | 2018-09-11 10:24 | NUR ---
PT LEFT UNIT FOR CT HEAD.
[2018-09-11] MEDS ORDERED: POTASSIUM CHLORIDE 10 MEQ TABER PO SCH (10:30)
[2018-09-11] MEDS: NACL 0.9% 1,000 ML IV SCH (11:12)
--- NOTE | 2018-09-11 11:24 | NUR ---
ADMINISTERED 4 UNITS HUMALOG FOR POC BLOOD GLUC OF 240 MG/DL.
[2018-09-11 16:00] VITALS: BP 151/75
--- NOTE | 2018-09-11 19:21 | NUR ---
ENDORSED POC TO SUPPORT TEAM ASSOC RN. PT IN STABLE CONDITION.
--- NOTE | 2018-09-11 19:35 | NUR ---
ENDORSED POC TO REGULATOR TESTER RN. PT IN STABLE CONDITION.
--- NOTE | 2018-09-11 19:36 | NUR ---
RECEIVED BEDSIDE REPORT AM SHIFT. MS PT. AOX4. SUPINE IN BED WITH FAMILY MEMBER AT BEDSIDE. NO C/O PAIN OR DISCOMFORT.NO S/S'S OF RESPIRATORY DISTRESS. RT SIDED WEAKNESS NOTED. SKIN INTACT. WITH ONGOING IVF ON LEFT AC PATENT AND ASYMPTOMATIC. ALL SAFETY PRECAUTIONS IN PLACE, CALL LIGHT WITHIN REACH.WILL CONTINUE TO MONITOR.
[2018-09-11] MEDS: SIMVASTATIN 40 MG TAB PO SCH (20:59)
--- NOTE | 2018-09-11 22:35 | NUR ---
PT VOIDED 1X YELLOW URINE, 300 CC.
--- NOTE | 2018-09-12 | NUR ---
SLEEPING COMFORTABLY. NO COMPLAINTS OF PAIN AT THIS TIME, RESPIRATIONS EVEN AND UNLABORED. WILL CONTINUE TO MONITOR.
[2018-09-12 04:00] VITALS: BP 160/80
[2018-09-12] MEDS: hydrALAZINE 20 MG/ML VIAL IVP PRN (05:14)
--- NOTE | 2018-09-12 06:01 | NUR ---
CONFIRMED W/[facility] FOR TIME OF AIRCRAFT SHIPPING CHECKER PT FOR 0715 AT 0550.
[2018-09-12] MEDS: METOCLOPRAMIDE 10 MG TAB PO SCH ×3 (06:26→16:30)
[2018-09-12] MEDS: BLOOD GLUCOSE MONITORING 1 DEV DEV FS SCH ×4 (06:35→21:08)
--- NOTE | 2018-09-12 06:41 | NUR ---
WILL ENDORSE TO NEXT SHIFT FOR CONTINUITY OF CARE. PT IN STABLE CONDITION
[2018-09-12 07:07] LABS: BASOPHILS % (AUTO) 0.4 % (0.0-2.0); EOSINOPHILS # (AUTO) 0.5 K/uL (0-0.4); EOSINOPHILS % (AUTO) 4.3 % (0.0-4.0); HEMATOCRIT 37.7 % (36-48); HEMOGLOBIN 12.7 g/dL (12.0-16.0); LYMPHOCYTES # (AUTO) 2.1 K/uL (2.5-16.5); LYMPHOCYTES % (AUTO) 19.4 % (20.5-51.1); MEAN CORPUSCULAR HEMOGLOBIN 29 pg (27-31); MEAN CORPUSCULAR HGB CONC 34 g/dL (33-37); MONOCYTES # (AUTO) 0.8 K/uL (0.8-1.0); MONOCYTES % (AUTO) 7.1 % (1.7-9.3); NEUTROPHILS # (AUTO) 7.6 K/uL (1.8-7.7); NEUTROPHILS % (AUTO) 68.8 % (42.2-75.2); PLATELET COUNT (AUTO) 230 K/uL (140-450); RED BLOOD CELL COUNT(AUTO) 4.39 MIL/uL (4.20-5.40); RED CELL DISTRIBUTION WIDTH 12.9 % (11.6-13.7); WHITE BLOOD COUNT (AUTO) 11.1 K/uL (4.8-10.8)
[2018-09-12 07:16] LABS: ANION GAP 11.2 (8-16); CARBON DIOXIDE 27.6 mmol/L (21-32); CREATININE 0.7 mg/dL (0.6-1.3); POTASSIUM 3.8 mmol/L (3.5-5.1)
[2018-09-12 07:22] LABS: MAGNESIUM 1.5 mg/dL (1.8-2.4); PHOSPHORUS 3.8 mg/dL (2.5-4.9)
--- NOTE | 2018-09-12 07:30 | NUR ---
RECEIVED REPORT FROM GINA MERA. PATIENT AAOX4. PATIENT ON ROOM AIR, NO DISTRESS NOTED. SKIN INTACT. IV ON L AC 22 G INFUSING NS AT 40. IV ASYMPTOMATIC, INTACT, AND PATENT. PATIENT UNABLE TO AMBULATE. ON MED SURGE AND STANDARD PRECAUTIONS IN PLACE. BED IN LOW POSITION, CALL LIGHT WITHIN REACH. WILL CONTINUE TO MONITOR. [facility] HERE READY FOR PICKUP TO GO TO [facility].
--- NOTE | 2018-09-12 07:40 | NUR ---
PATIENT PICKED UP VIA GURNEY BY [facility] TO GO TO [facility] FOR MRI. PATIENT IN STABLE CONDITION.
--- NOTE | 2018-09-12 09:45 | NUR ---
PATIENT BACK FROM [facility]. PATIENT IN STABLE CONDITION. WILL CONTINUE TO MONITOR.
[2018-09-12] MEDS: LISINOPRIL 10 MG TAB PO SCH ×2 (10:34→21:04)
[2018-09-12] MEDS: ASPIRIN 81 MG TAB.CHEW PO SCH (10:35)
[2018-09-12] MEDS: metFORMIN 850 MG TAB PO SCH ×3 (10:35→17:00)
[2018-09-12] MEDS: glyBURIDE 5 MG TAB PO SCH ×2 (10:35→17:00)
--- NOTE | 2018-09-12 10:43 | NUR ---
ADMINISTERED SCHEDULED MEDS. PATIENT TOLERATED WELL. WILL CONTINUE TO MONITOR.
[2018-09-12] MEDS ORDERED: MAGNESIUM OXIDE 400 MG TAB PO SCH (11:30)
--- NOTE | 2018-09-12 12:21 | NUR ---
ADMINISTERED SCHEDULED MEDS. PATIENT TOLERATED WELL. BLOOD SUGAR 104, NO COVERAGE NEEDED. PATIENT NOW EATING LUNCH. WILL CONTINUE TO MONITOR.
--- NOTE | 2018-09-12 14:26 | NUR ---
PATIENT SLEEPING. ON ROOM AIR, NO DISTRESS NOTED. WILL CONTINUE TO MONITOR.
--- NOTE | 2018-09-12 16:09 | NUR ---
09/12/18 RD INITIAL ASSESSMENT COMPLETED PLEASE REFER TO NUTRITION ASSESSMENT UNDER CARE ACTIVITY FOR ESTIMATED NUTRITIONAL NEEDS. 1. RECOMMEND CARDIAC AND CCHO 45 GM DIET WITH MODIFIED FOOD TEXTURE AND LIQUID CONSISTENCY RECOMMEND BY SPEECH THERAPIST 2. RD PROVIDED NUTRITION EDUCATION ON DIABETES AND GENERAL HEALTHY EATING. 3. RD TO FOLLOW-UP 3-5 DAYS, MODERATE RISK BOUBACAR SUE RD
--- NOTE | 2018-09-12 18:10 | NUR ---
FAMILY AT BEDSIDE. PATIENT EATING LUNCH, NO DISTRESS NOTED, ON ROOM AIR. WILL CONTINUE TO MONITOR.
--- NOTE | 2018-09-12 19:20 | NUR ---
GAVE REPORT TO EDE KNOTT. PATIENT ENDORSED IN STABLE CONDITION.
--- NOTE | 2018-09-12 19:30 | NUR ---
RECEIVED REPORT FROM DAYSVTFT NURSE AT BEDSIDE FOR CONTINUITY OF CARE. PT [id number]. AZERI SPEAKING. NO SOB NO S/S OF DISTRESS ON RA. IV NOTED LFA 22G NS 40 ML/HR. BED LOWERED CALL LIGHT WITHIN REACH WILL CONTINUE TO MONITOR.
[2018-09-12 20:00] VITALS: BP 144/70
[2018-09-12] MEDS: SIMVASTATIN 40 MG TAB PO SCH (21:04)
--- NOTE | 2018-09-13 04:22 | NUR ---
MD FUNG WAS MADE AWARE OF CT W/ CONTRAST RESULTS. WILL CONTINUE TO MONITOR.
[2018-09-13] MEDS: BLOOD GLUCOSE MONITORING 1 DEV DEV FS SCH ×2 (06:30→12:24)
[2018-09-13] MEDS: METOCLOPRAMIDE 10 MG TAB PO SCH ×2 (06:30→12:25)
[2018-09-13 07:16] LABS: BASOPHILS # (AUTO) 0.1 K/uL (0.00-0.22); BASOPHILS % (AUTO) 0.6 % (0.0-2.0); EOSINOPHILS # (AUTO) 0.8 K/uL (0-0.4); HEMATOCRIT 37.3 % (36-48); HEMOGLOBIN 12.4 g/dL (12.0-16.0); LYMPHOCYTES # (AUTO) 2.2 K/uL (2.5-16.5); LYMPHOCYTES % (AUTO) 19.9 % (20.5-51.1); MEAN CORPUSCULAR HEMOGLOBIN 29 pg (27-31); MEAN CORPUSCULAR HGB CONC 33 g/dL (33-37); MEAN CORPUSCULAR VOLUME 87.5 fL (80-94); MONOCYTES # (AUTO) 0.7 K/uL (0.8-1.0); MONOCYTES % (AUTO) 6.6 % (1.7-9.3); NEUTROPHILS # (AUTO) 7.3 K/uL (1.8-7.7); NEUTROPHILS % (AUTO) 65.9 % (42.2-75.2); PLATELET COUNT (AUTO) 245 K/uL (140-450); RED BLOOD CELL COUNT(AUTO) 4.27 MIL/uL (4.20-5.40); RED CELL DISTRIBUTION WIDTH 12.4 % (11.6-13.7); WHITE BLOOD COUNT (AUTO) 11.1 K/uL (4.8-10.8)
[2018-09-13 07:21] LABS: ANION GAP 12.5 (8-16); CARBON DIOXIDE 26.5 mmol/L (21-32); CREATININE 0.7 mg/dL (0.6-1.3)
--- NOTE | 2018-09-13 07:25 | NUR ---
ENDORSED REPORT TO DAYSHIFT NURSE AT BEDSIDE FOR CONTINUITY OF CARE.
--- NOTE | 2018-09-13 07:26 | NUR ---
RECEIVED BEDSIDE REPORT FROM NIKOS MERA. PATIENT [id number]. PATIENT ON ROOM AIR W NO DISTRESS NOTED. SKIN INTACT AND PATIENT AMBULATES W 2 PEOPLE ASSIST. PATIENT ON MED SURGE WITH STANDARD PRECAUTIONS. IV ON R AC 20 G SALINE LOCK AND L FA 22 G INFUSING NS AT 40. IV ASYMPTOMATIC PATENT AND INTACT. FALL RISK PROTOCOL IN PLACE. BED IN LOW POSITION, CALL LIGHT WITHIN REACH SIDE RAILS X2 UP. WILL CONTINUE TO MONITOR.
[2018-09-13 07:27] LABS: MAGNESIUM 1.5 mg/dL (1.8-2.4); PHOSPHORUS 3.9 mg/dL (2.5-4.9)
[2018-09-13 08:00] VITALS: BP 150/72
[2018-09-13] MEDS: NACL 0.9% 1,000 ML IV SCH (08:25)
[2018-09-13] MEDS: ACETAMINOPHEN 325 MG TAB PO PRN (08:28)
[2018-09-13] MEDS: LISINOPRIL 10 MG TAB PO SCH (08:29)
[2018-09-13] MEDS: ASPIRIN 81 MG TAB.CHEW PO SCH (08:30)
[2018-09-13] MEDS: metFORMIN 850 MG TAB PO SCH ×2 (08:30→12:00)
[2018-09-13] MEDS: glyBURIDE 5 MG TAB PO SCH (08:31)
--- NOTE | 2018-09-13 08:33 | NUR ---
ADMINISTERED SCHEDULED MEDS. PATIENT TOLERATED WELL. PATIENT ATE BREAKFAST. GAVE TYLENOL FOR HEADACHE. WILL CONTINUE TO MONITOR.
[2018-09-13] MEDS ORDERED: ASPIRIN 325 MG TAB PO SCH (08:43)
[2018-09-13] MEDS ORDERED: MAG SULF 2000 MG/WATER PREMIX 50 ML IV SCH (09:00)
--- NOTE | 2018-09-13 09:47 | NUR ---
S.T. BEDSIDE SWALLOW EVAL COMPLETED See report for details. Pt presents with moderate pharyngeal phase dysphagia c/b coughing after straw sips of thin liquids, immediately after swallow. Recommend: 1) Continue mechanical soft diet, DOWNGRADE liquid texture to NECTAR THICK LIQUIDS ONLY. Controlled straw sips ok. 2) P.O. meds as tolerated, fuh-fe-m-time. Pt w/ DC orders home. Education re: purchasing/using food thickener was attempted in pt's primary language. Further education/reinforcement is recommended. D/w pt and EDE Light. Pt may benefit from outpatient ST due to new onset dysphagia. Time 3875-5330
[2018-09-13] MEDS ORDERED: SIMV40TA5 PO (11:07)
[2018-09-13] MEDS ORDERED: LISI10TA11 PO (11:07)
[2018-09-13] MEDS ORDERED: ASPI-1205 PO (11:07)
[2018-09-13] MEDS ORDERED: METF1000 PO (11:13)
[2018-09-13] MEDS ORDERED: METO10TA98 PO (11:59)
--- NOTE | 2018-09-13 12:26 | NUR ---
PATIENT SLEEPING. NO DISTRESS NOTED ON ROOM AIR. WILL CONTINUE TO MONITOR
--- NOTE | 2018-09-13 13:04 | NUR ---
CM NOTE RECEIVED ORDER FOR A WALKER. PENNY JAIN [employer] [employer] REQUESTED FOR THE FACESHEET, ORDER FOR WALKER, H&P, PT EVAL NOTES BE FAXED TO HIM AT [facility]. FAXED REQUESTED INFO, ATTN: PENNY. PER PENNY OF [employer] # [phone], THEIR COLON AND RECTAL SURGEON WILL DELIVER THE WALKER TO THE PATIENT AT BEDSIDE TODAY AFTER 3:00 PM. RIK MERA AWARE.
[2018-09-13] MEDS: INSULIN LISPRO SLIDING SCALE 100 UNITS/ML VIAL SUBQ PRN (13:06)
--- NOTE | 2018-09-13 15:26 | NUR ---
AT BEDSIDE. PATIENT ON ROOM AIR, NO DISTRESS NOTED. WILL CONTINUE TO MONITOR.
--- NOTE | 2018-09-13 16:40 | NUR ---
WALKER AT BEDSIDE. DISCHARGE INSTRUCTIONS PROVIDED. ADVISED PATIENT TO RETURN TO NEAREST ER WHEN EXPERIENCING SOB, FEVER, PAIN, ETC. PATIENT AWARE OF APPOINTMENT TIME AND WHERE TO CONSULTING DATABASE ADMINISTRATOR PRESCRIBED MEDICATIONS. PER [facility] [employer], [facility] WILL CALL PATIENT AT HOME FOR OUTPATIENT PHYSICAL THERAPY. ANSWERED ALL QUESTIONS AND CONCERNS. REMOVED WRIST BANDS AND IV, IV TIP INTACT. ALL PATIENT BELONGINGS ARE WITH PATIENT. Addendum: 09/13/18 at 1656 by Nadege Hall RN PNA AND FLU VACCINES NOT GIVEN.
--- NOTE | 2018-09-13 16:46 | NUR ---
Professional Organizer Note: I faxed referral to [facility] (outpatient [facility] therapy program, [facility]), phone number , fax . Per Serge from [facility], they will contact patient or patient's daughter Lilia Olivo and provide her with appt information. I called and spoke with Lilia Olivo (speaks Qatari) to inform her of referral and to let her know she will be contact regarding appt information. Lilia verbalized understanding. I provided her with phone number and address of [facility]. Patient is in agreement with referral to [facility].
== END 2018-09-13 16:40 | disposition home or self-care (01) | DRG 420 ==
LOC: MED 02:29 → MIC 05:16 → MTU 09-09 14:10
PROVIDERS: ADMIT General Practice; ATTEND General Practice
DX: E11.00 Type 2 diabetes mellitus with hyperosmolarity without nonketotic hyperglycemic-hyperosmolar coma (NKHHC) (principal); K85.90 Acute pancreatitis without necrosis or infection, unspecified; G90.8 Other disorders of autonomic nervous system; E83.42 Hypomagnesemia; E11.65 Type 2 diabetes mellitus with hyperglycemia; E87.1 Hypo-osmolality and hyponatremia; I10 Essential (primary) hypertension; R26.9 Unspecified abnormalities of gait and mobility; F17.200 Nicotine dependence, unspecified, uncomplicated; E78.5 Hyperlipidemia, unspecified; E86.9 Volume depletion, unspecified; E87.6 Hypokalemia; Z91.14 Patient's other noncompliance with medication regimen; Z83.3 Family history of diabetes mellitus; Z82.49 Family history of ischemic heart disease and other diseases of the circulatory system; E86.0 Dehydration
CPT/HCPCS: 36415; 36600; 70450; 70460; 71045; 76700; 80048; 80053; 80305; 81001; 82009; 82150; 82803; 82948; 83036; 83605; 83690; 83735; 83880; 84100; 84436; 84443; 84484; 85025; 85610; 85730; 87081; 87804; 92526; 92610; 93005; 93880; 96361; 96372; 96374; 96375; 97110; 97116; 97530; 99285; J0360; J0780; J1815; J2405; J2765; J3475; J3490; J7030; J7042; J8597; Q0092

== ENCOUNTER 2019-09-06 00:40 | Emergency (ER) | payer SELFPAY ==
[~2019-09-06] VITALS: Ht 152.4 cm; Wt 51.9 kg
[~2019-09-06 00:40] MED LIST: ASPI-1205 PO; LISI10TA11 PO; METF1000 PO; METO10TA98 PO; MIC5 PO; SIMV-33 PO
[2019-09-06 01:10] VITALS: BP 102/59
[2019-09-06] MEDS ORDERED: ACETAMINOPHEN 325 MG TAB PO ONE (01:10)
--- NOTE | 2019-09-06 01:13 | NUR ---
TO LOBBY A/ W BED AMBULATORY
--- NOTE | 2019-09-06 01:30 | NUR ---
PATIENT STATES SHE HAS CHILLS, FEVERS, NAUSEA AND VOMITING AND THAT HER BODY FEELS "NUMB". SYMPTOMS STARTED TODAY. PATIENT BS HIGH 530 AT TIME OF TRIAGE. PATIENT STATES SHE TAKES METFORMIN. NO RESP SYMPTOMS REPORTED. ABD SOFT AND NON-TENDER. LAST EPISODE OF VOMITING 1400 YESTERDAY. Hx: DM, HTN, HLD.
--- NOTE | 2019-09-06 01:36 | NUR ---
AMBULATED TO ER BED 2
--- NOTE | 2019-09-06 01:39 | NUR ---
ermd at bedside.
[2019-09-06] MEDS ORDERED: NACL 0.9% 1,000 ML IV ONE (01:45)
--- NOTE | 2019-09-06 01:55 | NUR ---
LABS COLLECTED DURING IV START. SENT TO LAB. 20G IN LEFT AC. PATIENT TOLERATED WELL.
[2019-09-06 02:00] LABS: BASOPHILS # (AUTO) 0.1 K/uL (0.00-0.22); BASOPHILS % (AUTO) 0.8 % (0.0-2.0); EOSINOPHILS # (AUTO) 0.1 K/uL (0-0.4); EOSINOPHILS % (AUTO) 0.5 % (0.0-4.0); HEMATOCRIT 36.5 % (36-48); LYMPHOCYTES # (AUTO) 1.3 K/uL (2.5-16.5); LYMPHOCYTES % (AUTO) 9.7 % (20.5-51.1); MEAN CORPUSCULAR HEMOGLOBIN 29 pg (27-31); MEAN CORPUSCULAR HGB CONC 33 g/dL (33-37); MEAN CORPUSCULAR VOLUME 88.9 fL (80-94); MONOCYTES # (AUTO) 1.7 K/uL (0.8-1.0); MONOCYTES % (AUTO) 12.5 % (1.7-9.3); NEUTROPHILS # (AUTO) 10.3 K/uL (1.8-7.7); NEUTROPHILS % (AUTO) 76.5 % (42.2-75.2); PLATELET COUNT (AUTO) 232 K/uL (140-450); RED CELL DISTRIBUTION WIDTH 12.8 % (11.6-13.7); WHITE BLOOD COUNT (AUTO) 13.4 K/uL (4.8-10.8)
--- NOTE | 2019-09-06 02:05 | NUR ---
PATIENT AMB TO RESTROOM, URINE SAMPLE COLLECTED AND SENT TO LAB. PATIENT HOOKED BACK UP TO FLUIDS.
[2019-09-06 02:17] LABS: ALBUMIN 2.5 g/dL (3.4-5.0); ANION GAP 14.9 (8-16); CARBON DIOXIDE 26.3 mmol/L (21-32); CREATININE 1.5 mg/dL (0.6-1.3); POTASSIUM 5.2 mmol/L (3.5-5.1); TOTAL BILIRUBIN 0.5 mg/dL (0.0-1.0)
[2019-09-06] MEDS ORDERED: INSULIN REGULAR, HUMAN 100 UNIT/ML VIAL SUBQ ONE ×2 (02:25→03:15)
[2019-09-06] MEDS ORDERED: cefTRIAXone 1,000 MG VIAL ONE (02:41)
--- NOTE | 2019-09-06 03:58 | NUR ---
Spoke to Dr Mcintosh regarding Point of Care blood glucose. POC blood glucose >600, too high to read. Dr mcintosh states patient is cleared to be discharged home.
[2019-09-06 04:03] VITALS: BP 106/62
== END 2019-09-06 04:03 | disposition home or self-care (01) ==
LOC: MED 00:40
DX: E11.65 Type 2 diabetes mellitus with hyperglycemia (principal); N39.0 Urinary tract infection, site not specified; E78.00 Pure hypercholesterolemia, unspecified; Z79.899 Other long term (current) drug therapy; Z79.84 Long term (current) use of oral hypoglycemic drugs; Z79.82 Long term (current) use of aspirin
CPT/HCPCS: 36415; 80053; 81002; 82948; 85025; 87040; 87804; 96360; 96372; 99284; J0696; J1815; J7030; 81025; 96361

== ENCOUNTER 2022-09-17 00:53 | Inpatient (IN) | payer MEDICAID ==
[~2022-09-17] VITALS: Ht 147.3 cm; Wt 51.7 kg
[~2022-09-17 00:53] MED LIST changes: +GLYB-200 PO; -LISI10TA11 PO; +LISI10TA30 PO; +METF-1274 PO; -METF1000 PO; +METO10TA11 PO; -METO10TA98 PO; -MIC5 PO
[2022-09-17 00:55] VITALS: BP 145/81
--- NOTE | 2022-09-17 01:00 | NUR ---
c/o upper abd pain. per pt, hx hypertension and hyperlipidemia. denies allergies.
--- NOTE | 2022-09-17 01:00 | NUR ---
PT TAKEN TO BED 9
[2022-09-17] MEDS ORDERED: DICYCLOMINE HCL LIQUID 20 MG, ALUMINUM HYD/MAG/SIMETHICONE 30 ML, LIDOCAINE VISCOUS 2% ... PO ONE ×3 (01:40)
[2022-09-17] MEDS ORDERED: ALUMINUM HYD/MAG/SIMETHICONE 30 ML UDC ONE (01:58)
[2022-09-17] MEDS ORDERED: DICYCLOMINE HCL LIQUID 10 MG/5 ML UDC ONE (01:58)
[2022-09-17 02:01] LABS: BASOPHILS # (AUTO) 0.1 K/uL (0.00-0.22); BASOPHILS % (AUTO) 0.9 % (0.0-2.0); EOSINOPHILS # (AUTO) 0.4 K/uL (0-0.4); EOSINOPHILS % (AUTO) 5.3 % (0.0-4.0); HEMATOCRIT 32.4 % (36-48); HEMOGLOBIN 11.1 g/dL (12.0-16.0); LYMPHOCYTES # (AUTO) 1.9 K/uL (2.5-16.5); LYMPHOCYTES % (AUTO) 24.8 % (20.5-51.1); MEAN CORPUSCULAR HEMOGLOBIN 29 pg (27-31); MEAN CORPUSCULAR HGB CONC 34 g/dL (33-37); MEAN CORPUSCULAR VOLUME 85.5 fL (80-94); MONOCYTES # (AUTO) 0.8 K/uL (0.8-1.0); MONOCYTES % (AUTO) 10.3 % (1.7-9.3); NEUTROPHILS # (AUTO) 4.5 K/uL (1.8-7.7); NEUTROPHILS % (AUTO) 58.7 % (42.2-75.2); PLATELET COUNT (AUTO) 326 K/uL (140-450); RED BLOOD CELL COUNT(AUTO) 3.78 MIL/uL (4.20-5.40); RED CELL DISTRIBUTION WIDTH 12.8 % (11.6-13.7); WHITE BLOOD COUNT (AUTO) 7.6 K/uL (4.8-10.8)
[2022-09-17 02:15] LABS: ALBUMIN 2.8 g/dL (3.4-5.0); ANION GAP 10.1 (8-16); CARBON DIOXIDE 30.6 mmol/L (21-32); CREATININE 1.1 mg/dL (0.6-1.3); POTASSIUM 3.7 mmol/L (3.5-5.1); TOTAL BILIRUBIN 0.5 mg/dL (0.0-1.0)
[2022-09-17 02:31] LABS: APPEARANCE,URINE CLOUDY (CLEAR); BILIRUBIN,URINE NEGATIVE (NEGATIVE); BLOOD, URINE 1+ (NEGATIVE); COLOR,URINE YELLOW (YELLOW); LEUKOCYTE ESTERASE ,URINE NEGATIVE (NEGATIVE); NITRITE, URINE NEGATIVE (NEGATIVE); UGLUCOSE 2+ (NEGATIVE)
--- NOTE | 2022-09-17 02:31 | NUR ---
Urine collected sent to lab
[2022-09-17 02:35] LABS: RBC,URINE 0-5 /HPF (0-5)
[2022-09-17] MEDS ORDERED: ONDANSETRON 4 MG/2 ML VIAL IVP ONE (02:40)
[2022-09-17] MEDS ORDERED: MORPHINE SULFATE 4 MG/ML SYR IVP ONE (02:40)
[2022-09-17] MEDS ORDERED: NACL 0.9% 2,000 ML IV ONE (02:40)
--- NOTE | 2022-09-17 03:25 | NUR ---
PT TAKEN TO CT
--- NOTE | 2022-09-17 03:46 | NUR ---
PT RETURN FROM CT
[2022-09-17] MEDS ORDERED: METF-713 PO (05:06)
[2022-09-17] MEDS ORDERED: LEVEMIR SUBQ ×2 (05:06→06:00)
--- NOTE | 2022-09-17 05:10 | NUR ---
Pt with episode of vomiting, Dr. Merino made aware
[2022-09-17] MEDS ORDERED: LORazepam 2 MG/ML VIAL IVP PRN (06:10)
[2022-09-17] MEDS ORDERED: ONDANSETRON 4 MG/2 ML VIAL IVP PRN (06:10)
[2022-09-17] MEDS ORDERED: ZOLPIDEM 10 MG TAB PO PRN (06:10)
[2022-09-17] MEDS ORDERED: DEXTROSE 50% 50 ML SYR IVP PRN (06:10)
[2022-09-17] MEDS ORDERED: ACETAMINOPHEN 325 MG TAB PO PRN (06:10)
[2022-09-17] MEDS ORDERED: POTASSIUM CHLORIDE 10 MEQ TABER PO PRN (06:10)
[2022-09-17] MEDS ORDERED: DOCUSATE SODIUM 100 MG GELCAP PO PRN (06:10)
[2022-09-17] MEDS ORDERED: MORPHINE SULFATE 2 MG/ML SYR IVP PRN (06:10)
[2022-09-17] MEDS: NACL 0.9% 1,000 ML IV SCH ×3 (06:49→19:49)
--- NOTE | 2022-09-17 07:28 | NUR ---
ASSUMED PATIENT CARE, CONCUR WITH PRIOR NURSING ASSESSMENTS.
[2022-09-17 08:00] VITALS: BP 187/79
--- NOTE | 2022-09-17 08:06 | NUR ---
Patient will be admitted to care of MD MANI. Admited to [facility]. Will go to room 119. Belongings list completed. Report to ANAM.
--- NOTE | 2022-09-17 08:10 | NUR ---
RECEIVED PATIENT FROM CONDUIT INSTALLER NURSE.CAME ON [facility]. PATIENT ON NPO ON IV FLUIDS.ADMITTED TO [facility] ROOM NO 119B.VS BP 186/86, TEM 97.8 , RESP 16, 99% OXYGEN. REPORTED DR REGARDING THE HIGH BLOOD PRESSURE.WILL MEDICATE PER PRN BP MEDS.CALL LIGHT WITHIN REACH.ALL SAFETY MEASURES IN PLACE.
[2022-09-17] MEDS ORDERED: hydrALAZINE 10 MG TAB PO PRN (08:25)
--- NOTE | 2022-09-17 09:08 | NUR ---
PATIENT HAS BEEN SCREENED AND CATEGORIZED MODERATE NUTRITION RISK. PATIENT WILL BE SEEN WITHIN 3-5 DAYS OF ADMISSION. REVIEWED BY CHRIS NIETO RD
[2022-09-17] MEDS: BLOOD GLUCOSE MONITORING 1 DEV DEV FS SCH ×4 (11:30→20:40)
[2022-09-17] MEDS ORDERED: amLODIPine 5 MG TAB ONE (12:29)
[2022-09-17] MEDS ORDERED: hydrALAZINE 10 MG TAB PO SCH (13:00)
[2022-09-17] MEDS ORDERED: amLODIPine 5 MG TAB PO SCH ×2 (13:00)
--- NOTE | 2022-09-17 13:00 | NUR ---
FREQUENT ROUNDS DONE. PATIENT VERBALLY RESPONSES. BLOOD PRESSURE STABILIZED. ON IV FLUIDS, NPO STATUS. ALL NEEDS MET AT THIS TIME. ALL SCHEDULED MEDS GIVEN.
[2022-09-17 16:00] VITALS: BP 141/62
--- NOTE | 2022-09-17 18:00 | NUR ---
STARTED IV ROCEPHIN FIRST DOSE. NO REACTIONS NOTED.WILL CONTINUE TO MONITOR.
--- NOTE | 2022-09-17 19:20 | NUR ---
RECEIVED REPORT FROM AM NURSE, PT IS ASLEEP, NO S/SX OF PAIN NOR DISCOMFORT. NO ACUTE RESPIRATORY DISTRESS. SKIN WARM AND DRY TO TOUCH. SAFETY PRECAUTIONS IN PLACE, CALL LIGHT IN REACH.
--- NOTE | 2022-09-17 19:30 | NUR ---
ENDORSED PATIENT TO LEVEL VIAL SETTER NURSE FOR CONTINUITY OF CARE.
[2022-09-17] MEDS: DEXT 5% /NACL 0.9% 1,000 ML IV SCH (20:39)
[2022-09-18] VITALS: BP 134/68
[2022-09-18] MEDS: DEXT 5% /NACL 0.9% 1,000 ML IV SCH ×2 (05:33→16:03)
--- NOTE | 2022-09-18 06:22 | NUR ---
PATIENT IS ASLEEP. NO DISTRESS NOTED. ALL NEEDS ATTENDED TO. SAFETY PRECAUTIONS IN PLACE, CALL LIGHT REMAINS WITHIN REACH.
[2022-09-18] MEDS: BLOOD GLUCOSE MONITORING 1 DEV DEV FS SCH ×4 (06:31→20:30)
[2022-09-18 07:22] LABS: ANION GAP 9.1 (8-16); CARBON DIOXIDE 28.8 mmol/L (21-32); CREATININE 0.8 mg/dL (0.6-1.3); POTASSIUM 3.9 mmol/L (3.5-5.1)
[2022-09-18 07:27] LABS: BASOPHILS # (AUTO) 0.1 K/uL (0.00-0.22); BASOPHILS % (AUTO) 1.1 % (0.0-2.0); EOSINOPHILS # (AUTO) 0.7 K/uL (0-0.4); EOSINOPHILS % (AUTO) 14.2 % (0.0-4.0); HEMATOCRIT 33.5 % (36-48); HEMOGLOBIN 11.6 g/dL (12.0-16.0); LYMPHOCYTES # (AUTO) 1.7 K/uL (2.5-16.5); LYMPHOCYTES % (AUTO) 34.2 % (20.5-51.1); MEAN CORPUSCULAR HEMOGLOBIN 29 pg (27-31); MEAN CORPUSCULAR HGB CONC 35 g/dL (33-37); MEAN CORPUSCULAR VOLUME 84.1 fL (80-94); MONOCYTES # (AUTO) 0.3 K/uL (0.8-1.0); MONOCYTES % (AUTO) 6.1 % (1.7-9.3); NEUTROPHILS # (AUTO) 2.3 K/uL (1.8-7.7); NEUTROPHILS % (AUTO) 44.4 % (42.2-75.2); PLATELET COUNT (AUTO) 333 K/uL (140-450); RED BLOOD CELL COUNT(AUTO) 3.99 MIL/uL (4.20-5.40); RED CELL DISTRIBUTION WIDTH 12.5 % (11.6-13.7); WHITE BLOOD COUNT (AUTO) 5.1 K/uL (4.8-10.8)
--- NOTE | 2022-09-18 07:36 | NUR ---
RECEIVED PATIENT FROM INTENSIVE CARE MEDICINE SPECIALIST NURSE.PATIENT IN BED.VERBALLY RESPONSES. ON NPO STATUS, NO OTHER DISTRESS NOTED.CALL LIGHT WITHIN REACH.WILL CONTINUE TO MONITOR.
[2022-09-18 08:00] VITALS: BP 164/71
[2022-09-18] MEDS: MAG SULF 2000 MG/WATER PREMIX 50 ML IV PRN (09:05)
[2022-09-18] MEDS: amLODIPine 5 MG TAB PO SCH (09:12)
[2022-09-18] MEDS: INSULIN LISPRO SLIDING SCALE 100 UNITS/ML VIAL SUBQ PRN ×2 (12:26→20:31)
[2022-09-18 16:00] VITALS: BP 149/71
--- NOTE | 2022-09-18 19:20 | NUR ---
RECEIVED PT IN BED ASLEEP, NO S/SX OF PAIN NOR DISCOMFORT. NO ACUTE RESPIRATORY DISTRESS. SKIN WARM AND DRY TO TOUCH. IVF INFUSING WELL ORDERED.SAFETY PRECAUTION IN PLACE, CALL LIGHT IN REACH.
--- NOTE | 2022-09-18 19:30 | NUR ---
ENDORSED THE PATIENT TO IRON BENDER NURSE FOR THE CONTINUITY OF CARE.
[2022-09-19] VITALS: BP 129/71
[2022-09-19] MEDS: DEXT 5% /NACL 0.9% 1,000 ML IV SCH ×3 (02:12→22:10)
--- NOTE | 2022-09-19 06:15 | NUR ---
PATIENT IS ASLEEP. ALL NEEDS ATTENDED TO. NO DISTRESS NOTED. SAFETY PRECAUTIONS MAINTAINED DURING THE SHIFT, CALL LIGHT REMAINS WITHIN REACH.
[2022-09-19] MEDS: INSULIN LISPRO SLIDING SCALE 100 UNITS/ML VIAL SUBQ PRN ×2 (06:33→20:15)
[2022-09-19] MEDS: BLOOD GLUCOSE MONITORING 1 DEV DEV FS SCH ×4 (06:33→20:15)
[2022-09-19 07:26] LABS: BASOPHILS % (AUTO) 0.7 % (0.0-2.0); EOSINOPHILS # (AUTO) 0.6 K/uL (0-0.4); EOSINOPHILS % (AUTO) 12.6 % (0.0-4.0); HEMATOCRIT 34.9 % (36-48); LYMPHOCYTES # (AUTO) 2.1 K/uL (2.5-16.5); LYMPHOCYTES % (AUTO) 43.8 % (20.5-51.1); MEAN CORPUSCULAR HEMOGLOBIN 29 pg (27-31); MEAN CORPUSCULAR HGB CONC 34 g/dL (33-37); MEAN CORPUSCULAR VOLUME 85.6 fL (80-94); MONOCYTES # (AUTO) 0.3 K/uL (0.8-1.0); MONOCYTES % (AUTO) 7.1 % (1.7-9.3); NEUTROPHILS # (AUTO) 1.7 K/uL (1.8-7.7); NEUTROPHILS % (AUTO) 35.8 % (42.2-75.2); PLATELET COUNT (AUTO) 352 K/uL (140-450); RED BLOOD CELL COUNT(AUTO) 4.08 MIL/uL (4.20-5.40); RED CELL DISTRIBUTION WIDTH 12.5 % (11.6-13.7); WHITE BLOOD COUNT (AUTO) 4.8 K/uL (4.8-10.8)
[2022-09-19 07:46] LABS: ANION GAP 12.7 (8-16); CARBON DIOXIDE 26.9 mmol/L (21-32); CREATININE 0.8 mg/dL (0.6-1.3); POTASSIUM 3.6 mmol/L (3.5-5.1)
[2022-09-19 16:00] VITALS: BP 145/70
[2022-09-19] MEDS: MAG SULF 2000 MG/WATER PREMIX 50 ML IV PRN (18:14)
[2022-09-19] MEDS: amLODIPine 5 MG TAB PO SCH (18:23)
--- NOTE | 2022-09-19 19:30 | NUR ---
RECEIVED PT IN BED ASLEEP, EASILY AROUSABLE BY VERBAL STIMULI. DENIES PAIN. NO ACUTE RESPIRATORY DISTRESS NOTED. SKIN WARM AND DRY TO TOUCH. SAFETY PRECAUTIONS IN PLACE, CALL LIGHT IN REACH.
[2022-09-20] VITALS: BP 111/69
[2022-09-20 06:28] LABS: BASOPHILS % (AUTO) 0.6 % (0.0-2.0); EOSINOPHILS # (AUTO) 0.6 K/uL (0-0.4); EOSINOPHILS % (AUTO) 11.9 % (0.0-4.0); HEMATOCRIT 34.5 % (36-48); LYMPHOCYTES # (AUTO) 1.9 K/uL (2.5-16.5); LYMPHOCYTES % (AUTO) 39.9 % (20.5-51.1); MEAN CORPUSCULAR HEMOGLOBIN 30 pg (27-31); MEAN CORPUSCULAR HGB CONC 35 g/dL (33-37); MONOCYTES # (AUTO) 0.4 K/uL (0.8-1.0); NEUTROPHILS # (AUTO) 1.8 K/uL (1.8-7.7); NEUTROPHILS % (AUTO) 39.6 % (42.2-75.2); PLATELET COUNT (AUTO) 349 K/uL (140-450); RED BLOOD CELL COUNT(AUTO) 4.06 MIL/uL (4.20-5.40); RED CELL DISTRIBUTION WIDTH 12.4 % (11.6-13.7); WHITE BLOOD COUNT (AUTO) 4.7 K/uL (4.8-10.8)
--- NOTE | 2022-09-20 06:30 | NUR ---
PATIENT IS ASLEEP. ALL NEEDS ATTENDED TO. PT IS STABLE CONDITION. SAFETY PRECAUTIONS IN PLACE, CALL LIGHT IN REACH
[2022-09-20] MEDS: BLOOD GLUCOSE MONITORING 1 DEV DEV FS SCH ×2 (06:32→11:30)
[2022-09-20 06:59] LABS: ANION GAP 10.7 (8-16); CARBON DIOXIDE 27.5 mmol/L (21-32); CREATININE 0.9 mg/dL (0.6-1.3); POTASSIUM 3.2 mmol/L (3.5-5.1)
[2022-09-20 08:00] VITALS: BP 145/86
[2022-09-20] MEDS: DEXT 5% /NACL 0.9% 1,000 ML IV SCH (08:10)
[2022-09-20] MEDS: amLODIPine 5 MG TAB PO SCH (09:00)
== END 2022-09-20 15:25 | disposition home or self-care (01) | DRG 282 ==
LOC: MED 00:53 → MMU 06:06 → MTU 06:58
PROVIDERS: ADMIT Family Medicine; ATTEND Family Medicine
DX: K85.90 Acute pancreatitis without necrosis or infection, unspecified (principal); N30.80 Other cystitis without hematuria; K29.80 Duodenitis without bleeding; I10 Essential (primary) hypertension; E11.9 Type 2 diabetes mellitus without complications; Z20.822 Contact with and (suspected) exposure to COVID-19; E78.00 Pure hypercholesterolemia, unspecified; Z79.4 Long term (current) use of insulin; Z79.899 Other long term (current) drug therapy
CPT/HCPCS: 36415; 80048; 80053; 81001; 82948; 83690; 83735; 84478; 85025; 87081; 87086; 96361; 96374; 96375; 99285; J0696; J2270; J2405; J3475; J7060; Q9967

== ENCOUNTER 2023-09-17 18:16 | Emergency (ER) | payer BC, MEDICAID ==
[~2023-09-17 18:16] MED LIST changes: -ASPI-1205 PO; -GLYB-200 PO; +LEVEMIR SUBQ; -LISI10TA30 PO; -METF-1274 PO; +METF-713 PO; -METO10TA11 PO; -SIMV-33 PO
[2023-09-17 19:53] VITALS: BP 155/86; PULSE 80; RESP 16; TEMP 97.3; O2SAT 98
== END 2023-09-17 20:17 | disposition left against medical advice (07) ==
LOC: MED 18:16
DX: Z53.21 Procedure and treatment not carried out due to patient leaving prior to being seen by health care provider (principal)

== ENCOUNTER 2023-10-12 11:53 | Emergency (ER) | payer BC ==
[~2023-10-12] VITALS: Ht 152.4 cm; Wt 56.7 kg
[2023-10-12 12:01] VITALS: BP 201/94; PULSE 89; RESP 18; TEMP 97.6; O2SAT 98
[2023-10-12 13:06] VITALS: RESP 19
[2023-10-12] MEDS: lisinopriL 20 MG TAB PO ONE (14:36)
[2023-10-12 15:51] VITALS: BP 166/90; PULSE 85; O2SAT 95
== END 2023-10-12 15:51 | disposition home or self-care (01) ==
LOC: MED 11:53
DX: E11.65 Type 2 diabetes mellitus with hyperglycemia (principal); I10 Essential (primary) hypertension; Z79.4 Long term (current) use of insulin; Z79.899 Other long term (current) drug therapy
CPT/HCPCS: 82948; 99285